=== PATIENT | male | born 1995 ===

== ENCOUNTER 2020-12-24 20:32 | Emergency (ER) | payer SELFPAY ==
[2020-12-24 20:49] VITALS: BP 115/68
[2020-12-24] MEDS ORDERED: IPRATROPIUM/ALBUTEROL SULFATE 3 ML AMPUL.NEB IH ONE (21:13)
[2020-12-24] MEDS ORDERED: methylPREDNISolone Sod Succinate 125 MG/2 ML INJ IM ONE (21:13)
[2020-12-24] MEDS ORDERED: IBUPROFEN 600 MG TAB PO ONE (21:24)
--- NOTE | 2020-12-24 21:26 | Emergency Department Report ---
ED Asthma HPI - General Chief Complaint: Chest Pain Stated Complaint: CHEST HURT PUI?: No Source: patient Mode of arrival: Ambulatory Limitations: No Limitations - History of Present Illness Initial Comments: Patient is a 25-year-old -[place] male with a history of asthma and heavy tobacco abuse who presents to the ED with complaint of acute onset persistent shortness of breath, dry cough, wheezing, chest wall pain with cough and nasal and sinus congestion for the last 3 days, worse in the last 2 days. Patient states that he has used his albuterol inhaler at home with no relief. Patient denies dizziness, syncope, fever, chills, nausea and vomiting, abdominal pain, neck pain, sore throat, diarrhea or body aches and pains MD Complaint: "asthma attack", shortness of breath, wheezing, other (Chest wall pain; persistent dry cough) -: Sudden, days(s) (3) Asthma History: adult onset Severity: severe Context: allergen exposure, smoke exposure (Heavy tobacco abuse) Associated Symptoms: dry cough, chest pain Treatments Prior to Arrival: inhaled bronchodilator - Related Data Current Asthma Therapy: inhaled bronchodilator Previous Rx's Medication Instructions Recorded Last Taken Type Albuterol Sulfate [Proventil Hfa] 1 - 2 puff IH Q6H PRN #1 hfa.aer.ad 12/24/20 Unknown Rx Benzonatate [Tessalon Perles] 100 mg PO Q8HR #30 capsule 12/24/20 Unknown Rx Cetirizine HCl [Zyrtec 10mg tab] 10 mg PO DAILY #30 tablet 12/24/20 Unknown Rx Ibuprofen [Motrin] 600 mg PO Q8H PRN #20 tablet 12/24/20 Unknown Rx Montelukast [Singulair] 10 mg PO QPM #30 tablet 12/24/20 Unknown Rx methylPREDNISolone [Medrol 4MG 4 mg PO DAILY #21 tab.ds.pk 12/24/20 Unknown Rx DOSEPAK (21 tabs)] Allergies Allergy/AdvReac Type Severity Reaction Status Date / Time No Known Allergies Allergy Unverified 12/24/20 20:43 ED Review of Systems ROS: Stated complaint: CHEST HURT Other details as noted in HPI Constitutional: denies: chills, fever Eyes: denies: eye pain, eye discharge, vision change ENT: congestion. denies: ear pain, throat pain Respiratory: cough, shortness of breath, wheezing Cardiovascular: chest pain. denies: palpitations Endocrine: no symptoms reported Gastrointestinal: denies: abdominal pain, nausea, vomiting, diarrhea, constipa tion, hematemesis, melena Genitourinary: denies: urgency, dysuria Musculoskeletal: denies: back pain, joint swelling, arthralgia Skin: denies: rash, lesions Neurological: denies: headache, weakness, paresthesias Psychiatric: denies: anxiety, depression Hematological/Lymphatic: denies: easy bleeding, easy bruising ED Past Medical Hx - Past Medical History Hx Asthma: Yes - Surgical History Past Surgical History?: No - Social History Smoking Status: Current Every Day Smoker Substance Use Type: None - Medications Home Medications: Home Medications Medication Instructions Recorded Confirmed Last Taken Type Albuterol Sulfate [Proventil Hfa] 1 - 2 puff IH Q6H PRN #1 hfa.aer.ad 12/24/20 Unknown Rx Benzonatate [Tessalon Perles] 100 mg PO Q8HR #30 capsule 12/24/20 Unknown Rx Cetirizine HCl [Zyrtec 10mg tab] 10 mg PO DAILY #30 tablet 12/24/20 Unknown Rx Ibuprofen [Motrin] 600 mg PO Q8H PRN #20 tablet 12/24/20 Unknown Rx Montelukast [Singulair] 10 mg PO QPM #30 tablet 12/24/20 Unknown Rx methylPREDNISolone [Medrol 4MG 4 mg PO DAILY #21 tab.ds.pk 12/24/20 Unknown Rx DOSEPAK (21 tabs)] ED Physical Exam - General Limitations: No Limitations General appearance: alert, in no apparent distress - Head Head exam: Present: atraumatic, normocephalic, normal inspection - Eye Eye exam: Present: normal appearance, PERRL, EOMI Pupils: Present: normal accommodation - ENT ENT exam: Present: normal exam, normal orophraynx, mucous membranes moist, TM's normal bilaterally, normal external ear exam - Neck Neck exam: Present: normal inspection, full ROM - Respiratory Respiratory exam: Present: wheezes (Diffuse coarse wheezes throughout). Absent: respiratory distress, rales, rhonchi, chest wall tenderness, accessory muscle use, decreased breath sounds, prolonged expiratory - Cardiovascular Cardiovascular Exam: Present: regular rate, normal rhythm, normal heart sounds. Absent: bradycardia, tachycardia, systolic murmur, diastolic murmur, rubs, gallop - GI/Abdominal GI/Abdominal exam: Present: soft, normal bowel sounds. Absent: tenderness, guarding, rebound, hyperactive bowel sounds, hypoactive bowel sounds, organomegaly, mass, bruit - Extremities Exam Extremities exam: Present: normal inspection, full ROM, normal capillary refill - Back Exam Back exam: Present: normal inspection, full ROM. Absent: tenderness, CVA tenderness (R), CVA tenderness (L), muscle spasm, paraspinal tenderness, vertebral tenderness - Neurological Exam Neurological exam: Present: alert, oriented X3, CN II-XII intact, normal gait, reflexes normal - Psychiatric Psychiatric exam: Present: normal affect, normal mood - Skin Skin exam: Present: warm, dry, intact, normal color. Absent: rash ED Course Vital Signs 12/24/20 12/24/20 20:48 20:51 Temperature 99.8 F H Pulse Rate 90 77 Respiratory 22 Rate Blood Pressure 115/68 O2 Sat by Pulse 97 Oximetry ED Medical Decision Making - Radiology Data Radiology results: report reviewed, image reviewed [address] [address] XRay Report Signed Patient: AUSTIN HARVEY MR#: [id number] : 1995 Acct:[id number] Age/Sex: 25 / M ADM Date: 12/24/20 Loc: ED Attending Dr: Ordering Physician: HANDY RAMOS Date of Service: 12/24/20 Procedure(s): XR chest routine 2V Accession Number(s): [id number] cc: HANDY RAMOS Fluoro Time In Minutes: CHEST 2 VIEWS INDICATION / CLINICAL INFORMATION: COUGH, DYSPNEA, ASTHMA. COMPARISON: None available. FINDINGS: SUPPORT DEVICES: None. HEART / MEDIASTINUM: No significant abnormality. LUNGS / PLEURA: No significant pulmonary or pleural abnormality. No pneumothorax. ADDITIONAL FINDINGS: No significant additional findings. IMPRESSION: 1. No acute findings. Signer Name: Tunde Grant MD Signed: 12/24/2020 9:33 PM Workstation Name: [id number] Transcribed By: CW Dictated By: SOL GRANT MD Electronically Authenticated By: SOL GRANT MD Signed Date/Time: 12/24/202132 DD/ 32 TD/TT: - Medical Decision Making This is a 25-year-old -[place] male with a history of asthma and heavy tobacco abuse who presents to the ED with complaint of acute onset persistent shortness of breath, dry cough, wheezing, chest wall pain with cough and nasal and sinus congestion for the last 3 days, worse in the last 2 days. Patient states that he has used his albuterol inhaler at home with no relief. Patient was treated in the ED with Solu-Medrol 125 mg intramuscular injection, also r eceived take pain medications ibuprofen 600 mg p.o. x1 and also treated with DuoNeb. Chest x-ray showed no acute cardiopulmonary abnormalities or pneumonitis. On reevaluation, patient's wheezing resolved medication. Patient will discharge home on pain medications, albuterol inhaler, Medrol Dosepak and advised to follow-up with his primary care physician in 5 to 7 days for reevaluation. Patient was advised to return to the ED immediately if symptoms get worse. - Differential Diagnosis Asthma; bronchitis; pneumonia; Critical care attestation.: If time is entered above; I have spent that time in minutes in the direct care of this critically ill patient, excluding procedure time. ED Disposition Clinical Impression: Acute bronchitis with asthma with acute exacerbation, Shortness of breath Disposition: 01 HOME / SELF CARE / HOMELESS Is pt being admited?: No Does the pt Need Aspirin: No Condition: Stable Instructions: Shortness of Breath, Adult, [id number], Cough, Adult, [id number], Acute Bronchitis, Adult, [id number], Asthma, Adult, [id number] Additional Instructions: Take medication with food, drink plenty of fluids and follow-up with your primary care physician in 3 to 5 days for reevaluation. Return to the ED immediately if symptoms get worse Prescriptions: methylPREDNISolone [Medrol 4MG DOSEPAK (21 tabs)] 4 mg PO DAILY #21 tab.ds.pk Ibuprofen [Motrin] 600 mg PO Q8H PRN #20 tablet PRN Reason: Pain Albuterol Sulfate [Proventil Hfa] 1 - 2 puff IH Q6H PRN #1 hfa.aer.ad PRN Reason: Dyspnea Montelukast [Singulair] 10 mg PO QPM #30 tablet Benzonatate [Tessalon Perles] 100 mg PO Q8HR #30 capsule Cetirizine HCl [Zyrtec 10mg tab] 10 mg PO DAILY #30 tablet Referrals: [facility] [Provider Group] - 3-5 Days Time of Disposition: 23:10 Print Language: INDONESIAN
--- NOTE | 2020-12-24 21:37 | XRay Report ---
CHEST 2 VIEWS INDICATION / CLINICAL INFORMATION: COUGH, DYSPNEA, ASTHMA. COMPARISON: None available. FINDINGS: SUPPORT DEVICES: None. HEART / MEDIASTINUM: No significant abnormality. LUNGS / PLEURA: No significant pulmonary or pleural abnormality. No pneumothorax. ADDITIONAL FINDINGS: No significant additional findings. IMPRESSION: 1. No acute findings. Signer Name: Tunde Guthrie MD Signed: 12/24/2020 9:33 PM Workstation Name: [id number]
--- NOTE | 2020-12-25 19:12 | Electrocardiograph Report ---
[facility] Test Date: 2020-12-24 Test Time: 20:51:03 Pat Name: AUSTIN HARVEY Department: Room: Gender: M [place]: [id number] : 1995 Requested By: HOWARD PRIDE Order Number: [id number] Reading MD: Lj Hobson Measurements Intervals [place] Rate: 77 P: 73 FL: 154 QRS: 89 QRSD: 88 T: 34 QT: 337 QTc: 382 Interpretive Statements Sinus rhythm Biatrial enlargement Consider left ventricular hypertrophy No previous ECG available for comparison Electronically Signed On 12-25-2020 19:12:36 EDT by Lj Hobson
== END 2020-12-24 23:37 | disposition home or self-care (01) ==
LOC: ED 20:32
DX: J45.901 Unspecified asthma with (acute) exacerbation (principal); R06.02 Shortness of breath; F17.200 Nicotine dependence, unspecified, uncomplicated
CPT/HCPCS: 71046; 93005; 96372; 99283; J2930